=== PATIENT | female | born 1985 | race Hispanic/Latino ===

== ENCOUNTER 2018-11-06 14:06 | Emergency (ER) | payer BC, SELFPAY ==
[2018-11-06 15:14] LABS: RBC Red Blood Cell Count 4.22 M/uL (3.86-4.86)
[2018-11-06 15:15] LABS: Absolute Lymphocytes (CBC) 2.2 K/uL (0.7-4.9); Absolute Monocytes 0.4 K/uL (0.1-1.3); Absolute Neutrophil 4.1 K/uL (1.8-8.0); Basophils % 0.4 % (0-1.3); Eosinophils % 0.8 % (0-4.4); Hematocrit 35.1 % (36.0-45.0); Lymphocytes % 32.5 % (15.3-44.8); MPV 9.3 fL (7.6-11.3); Monocytes % 6.5 % (3.3-12.3)
[2018-11-06] MEDS ORDERED: ONDANSETRON 4 MG/2 ML VIAL ONE (15:16)
[2018-11-06] MEDS ORDERED: MORPHINE 4 MG/ML SYR ONE (15:29)
[2018-11-06] MEDS ORDERED: NA CHLORIDE 0.9% 1,000 ML ONE (15:29)
[2018-11-06 15:31] LABS: ALT/SGPT 34 U/L (12-78); AST/SGOT 15 U/L (15-37); Albumin 3.5 g/dL (3.4-5.0); Alkaline Phosphatase 86 U/L (45-117); BUN Blood Urea Nitrogen 12 mg/dL (7-18); Bicarbonate 26 mmol/L (21-32); Bilirubin Direct < 0.1 mg/dL (0-0.2); Bilirubin Total 0.2 mg/dL (0.2-1.0); Glucose Level 97 mg/dL (74-106); Lipase 292 U/L (73-393); Potassium 3.7 mmol/L (3.5-5.1); Protein, Total 7.4 g/dL (6.4-8.2); Sodium Level 140 mmol/L (136-145)
[2018-11-06 15:35] LABS: Urine Amorphous Sediment 2+ /HPF (NONE SEEN); Urine Bacteria 20-50 /HPF (<20); Urine Culture Reflex Order REFLEXED; Urine RBC NONE SEEN /HPF (NONE SEEN)
--- NOTE | 2018-11-06 16:34 | RAD REPORT ---
EXAM DESCRIPTION: US - Abdomen Exam Limited - 11/06/2018 4:22 pm CLINICAL HISTORY: ABD PAIN COMPARISON: No comparisons FINDINGS: The gallbladder demonstrates no gallstones. Tiny 2 mm polyp suspected. Gallbladder wall th ickening is present up to 6 mm. The common bile duct is upper limit of normal measuring 6 mm. The liver demonstrates no findings of intrahepatic biliary dilatation. IMPRESSION: No gallbladder stones are seen. Mildly thickened gallbladder wall can be result of hypoalbuminemia or underlying liver disease.
--- NOTE | 2018-11-06 16:44 | EDPHYS ---
Physician Documentation [facility] Name: Gena Gallego Age: 33 yrs Sex: Female : 1985 Arrival Date: 11/06/2018 Time: 14:11 Bed 27 Private MD: out of town, doctor ED Physician Noel Aaron HPI: 11/06 15:42 This 33 yrs old Female presents to ER via Ambulatory with complaints of Back kb Pain, Abdominal Pain. 15:42 The patient presents with abdominal pain in the epigastric area. Onset: The kb symptoms/episode began/occurred 1 week(s) ago. The symptoms radiate to back. Associated signs and symptoms: Pertinent positives: nausea. The symptoms are described as intermittent. Modifying factors: The symptoms are alleviated by nothing, the symptoms are aggravated by nothing. Severity of pain: At its worst the pain was moderate in the emergency department the pain is unchanged. The patient has not experienced similar symptoms in the past. The patient has not recently seen a physician. 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 - Social history:: Smoking status: Patient/guardian denies using tobacco. - Ebola Screening: : Patient denies travel to an Ebola-affected area in the 21 days before illness onset. ROS: 15:41 Constitutional: Negative for fever, chills, and weight loss, ENT: Negative for injury, kb pain, and discharge, Neck: Negative for injury, pain, and swelling, Cardiovascular: Negative for chest pain, palpitations, and edema, Respiratory: Negative for shortness of breath, cough, wheezing, and pleuritic chest pain, : Negative for injury, bleeding, discharge, and swelling, MS/Extremity: Negative for injury and deformity, Skin: Negative for injury, rash, and discoloration. 15:41 Abdomen/GI: Positive for abdominal pain, nausea, Negative for vomiting, diarrhea, constipation, abdominal cramps, abdominal distension, anorexia. Exam: 15:42 Constitutional: This is a well developed, well nourished patient who is awake, alert, kb and in no acute distress. Head/Face: Normocephalic, atraumatic. ENT: Nares patent. No nasal discharge, no septal abnormalities noted. Tympanic membranes are normal and external auditory canals are clear. Oropharynx with no redness, swelling, or masses, exudates, or evidence of obstruction, uvula midline. Mucous membranes moist. Neck: Trachea midline, no thyromegaly or masses palpated, and no cervical lymphadenopathy. Supple, full range of motion without nuchal rigidity, or vertebral point tenderness. No Meningismus. Chest/axilla: Normal chest wall appearance and motion. Nontender with no deformity. No lesions are appreciated. Cardiovascular: Regular rate and rhythm with a normal S1 and S2. No gallops, murmurs, or rubs. Normal PMI, no JVD. No pulse deficits. Respiratory: Lungs have equal breath sounds bilaterally, clear to auscultation and percussion. No rales, rhonchi or wheezes noted. No increased work of breathing, no retractions or nasal flaring. Skin: Warm, dry with normal turgor. Normal color with no rashes, no lesions, and no evidence of cellulitis. MS/ Extremity: Pulses equal, no cyanosis. Neurovascular intact. Full, normal range of motion. Neuro: Awake and alert, GCS 15, oriented to person, place, time, and situation. Cranial nerves II-XII grossly intact. Motor strength 5/5 in all extremities. Sensory grossly intact. Cerebellar exam normal. Normal gait. 15:42 Abdomen/GI: Inspection: abdomen appears normal, Bowel sounds: normal, in all quadrants, Palpation: soft, in all quadrants, nontender, in the right lower quadrant and left lower quadrant, moderate abdominal tenderness, in the right upper quadrant and left upper quadrant. Vital Signs: 14:32 BP 129 / 89; Pulse 63; Resp 18; Temp 98.5; Pulse Ox 100% on R/A; Height 5 ft. 0 in. aj1 (152.40 cm); Pain 8/10; 15:25 BP 143 / 89; Pulse 60; Resp 17; Pulse Ox 100% on R/A; tw2 16:17 BP 101 / 72; Pulse 53; Resp 17; Pulse Ox 100% on R/A; Pain 6/10; tw2 16:53 BP 119 / 81; Pulse 73; Resp 17; Pulse Ox 100% on R/A; Pain 6/10; tw2 17:13 BP 119 / 81; Pulse 58; Resp 17; Pulse Ox 100% on R/A; Pain 6/10; tw2 MDM: 14:34 Patient medically screened. kb 15:42 Data reviewed: vital signs, nurses notes. Data interpreted: Pulse oximetry: on room air kb is 100 %. Interpretation: normal. 16:42 Counseling: I had a detailed discussion with the patient and/or guardian regarding: the kb historical points, exam findings, and any diagnostic results supporting the discharge/admit diagnosis, lab results, radiology results, the need for outpatient follow up, a family practitioner, to return to the emergency department if symptoms worsen or persist or if there are any questions or concerns that arise at home. 11/06 14:43 Order name: Basic Metabolic Panel; Complete Time: 15:33 tw2 11/06 14:43 Order name: CBC with Diff; Complete Time: 15:33 tw11/06 14:43 Order name: Creatinine for Radiology; Complete Time: 15:33 tw11/06 14:43 Order name: Hepatic Function; Complete Time: 15:33 tw2 11/06 14:43 Order name: Lipase; Complete Time: 15:33 tw2 11/06 15:05 Order name: Urine Microscopic Only; Complete Time: 15:38 11/06 15:08 Order name: Urine Dipstick--Ancillary (enter results) 11/06 15:08 Order name: Urine --Ancillary (enter results) 11/06 15:15 Order name: US Abdomen Limited; Complete Time: 16:36 kb 11/06 15:36 Order name: Urine Culture [facility] 11/06 14:43 Order name: IV Saline Lock; Complete Time: 15:06 tw2 11/06 14:43 Order name: Labs collected and sent; Complete Time: 15:07 tw11/06 14:43 Order name: Urine Test (obtain specimen); Complete Time: 15:06 tw11/06 14:43 Order name: Urine Dipstick-Ancillary (obtain specimen); Complete Time: 15:06 tw2 Administered Medications: 15:10 Drug: Zofran 4 mg Route: IVP; Site: right antecubital; tw2 16:19 Follow up: Response: No adverse reaction; Nausea is decreased tw2 15:22 Drug: morphine 4 mg Route: IVP; Site: right antecubital; tw2 16:19 Follow up: Response: No adverse reaction; Pain is decreased tw2 15:25 Drug: NS 0.9% 1000 ml Route: IV; Rate: 1000 ml; Site: right antecubital; tw2 16:19 Follow up: Response: No adverse reaction; IV Status: Completed infusion; IV Intake: tw2 1000ml 16:44 Drug: ProTONIX 40 mg Route: IVP; Site: right antecubital; tw2 16:53 Follow up: Response: No adverse reaction tw2 16:45 Drug: Macrobid 100 mg Route: PO; tw2 17:14 Follow up: Response: No adverse reaction tw2 Disposition: 11/06/18 16:43 Discharged to Home. Impression: Upper abdominal pain, unspecified, Urinary tract infection, site not specified. - Condition is Stable. - Discharge Instructions: Urinary Tract Infection, Adult, [id number], Abdominal Pain, Adult, [id number]. - Prescriptions for Macrobid 100 mg Oral Capsule - take 1 capsule by ORAL route every 12 hours for 7 days; 14 capsule. - Medication Reconciliation Form, Thank You Letter, Antibiotic Education, Prescription Opioid Use form. - Follow up: Emergency Department; When: As needed; Reason: Worsening of condition. Follow up: Private Physician; When: 2 - 3 days; Reason: Recheck today's complaints, Continuance of care, Re-evaluation by your physician. Addendum: 11/08/2018 10:27 Co-signature as Attending Physician, Noel Aaron MD. g s Signatures: Dispatcher [employer] [facility] Tanisha Agustin, WASHER OFF-C WASHER OFF-Ckb Estrellita Chavez RN RN aj1 Vanita Alvarado RN RN ss Arabella Bliss RN RN tw2 Noel Aaron MD MD Corrections: (The following items were deleted from the chart) 11/06 16:43 16:43 11/06/2018 16:43 Discharged to Home. Impression: Upper abdominal pain, kb unspecified. Condition is Stable. Forms are Medication Reconciliation Form, Thank You Letter, Antibiotic Education, Prescription Opioid Use. Follow up: Emergency Department; When: As needed; Reason: Worsening of condition. Follow up: Private Physician; When: 2 - 3 days; Reason: Recheck today's complaints, Continuance of care, Re-evaluation by your physician. kb 17:15 16:43 11/06/2018 16:43 Discharged to Home. Impression: Upper abdominal pain, tw2 unspecified; Urinary tract infection, site not specified. Condition is Stable. Forms are Medication Reconciliation Form, Thank You Letter, Antibiotic Education, Prescription Opioid Use. Follow up: Emergency Department; When: As needed; Reason: Worsening of condition. Follow up: Private Physician; When: 2 - 3 days; Reason: Recheck today's complaints, Continuance of care, Re-evaluation by your physician. kb
--- NOTE | 2018-11-06 16:44 | ER ---
Nurse's Notes [facility] Name: Gena Gallego Age: 33 yrs Sex: Female : 1985 Arrival Date: 11/06/2018 Time: 14:11 Bed 27 Private MD: out of town, doctor Diagnosis: Upper abdominal pain, unspecified;Urinary tract infection, site not specified Presentation: 11/06 14:28 Presenting complaint: Patient states: "I've been having really bad back pain right in aj1 the middle and then the pain goes all the way to the front in my chest." Patient reports back pain, epigastric pain and chest pain that has been intermittent for the past week. Patient reports that she recently had a baby on . Transition of care: patient was not received from another setting of care. Onset of symptoms was October 30, 2018. Risk Assessment: Do you want to hurt yourself or someone else? Patient reports no desire to harm self or others. Initial Sepsis Screen: Does the patient meet any 2 criteria? No. Patient's initial sepsis screen is negative. Does the patient have a suspected source of infection? Yes: Acute abdominal pain. 14:28 Method Of Arrival: Ambulatory aj1 14:28 Acuity: DEVANTE 3 aj1 14:32 Care prior to arrival: None. aj1 Triage Assessment: 14:32 General: Appears in no apparent distress. uncomfortable, Behavior is calm, cooperative, aj1 appropriate for age. Pain: Complains of pain in back Pain radiates to epigastric area Pain currently is 8 out of 10 on a pain scale. Neuro: Level of Consciousness is awake, alert, obeys commands. Cardiovascular: Patient's skin is warm and dry. Respiratory: Airway is patent Respiratory effort is even, unlabored, Respiratory pattern is regular, symmetrical. Musculoskeletal: Range of motion: intact in all extremities. 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 - Social history:: Smoking status: Patient/guardian denies using tobacco. - Ebola Screening: : Patient denies travel to an Ebola-affected area in the 21 days before illness onset. Screenin:32 Abuse screen: Denies threats or abuse. Nutritional screening: No deficits noted. tw2 Tuberculosis screening: No symptoms or risk factors identified. Fall Risk None identified. Assessment: 14:35 General: Appears in no apparent distress. obese, well groomed, Behavior is calm, tw2 cooperative, appropriate for age. Pain: Complains of pain in abdomen and epigastric area Pain radiates to back. Neuro: Level of Consciousness is awake, alert, obeys commands, Oriented to person, place, time, situation. Cardiovascular: Heart tones S1 S2 Patient's skin is warm and dry. Respiratory: Airway is patent Respiratory effort is even, unlabored, Respiratory pattern is regular, symmetrical, Breath sounds are clear bilaterally. GI: Abdomen is round non-distended, Bowel sounds present X 4 quads. Reports upper abdominal pain, nausea. : No signs and/or symptoms were reported regarding the genitourinary system. EENT: No signs and/or symptoms were reported regarding the EENT system. Derm: No signs and/or symptoms reported regarding the dermatologic system. Musculoskeletal: Range of motion: intact in all extremities. 15:26 Reassessment: Patient appears in no apparent distress at this time. No changes from tw2 previously documented assessment. Patient and/or family updated on plan of care and expected duration. Pain level reassessed. Patient is alert, oriented x 3, equal unlabored respirations, skin warm/dry/pink. 16:17 Reassessment: Patient appears in no apparent distress at this time. No changes from tw2 previously documented assessment. Patient and/or family updated on plan of care and expected duration. Pain level reassessed. Patient is alert, oriented x 3, equal unlabored respirations, skin warm/dry/pink. US completed at bedside at this time. 16:38 Reassessment: provider at bedside at this time. tw2 16:53 Reassessment: Patient appears in no apparent distress at this time. No changes from tw2 previously documented assessment. Patient and/or family updated on plan of care and expected duration. Pain level reassessed. Patient is alert, oriented x 3, equal unlabored respirations, skin warm/dry/pink. 17:13 Reassessment: Patient appears in no apparent distress at this time. No changes from tw2 previously documented assessment. Patient and/or family updated on plan of care and expected duration. Pain level reassessed. Patient is alert, oriented x 3, equal unlabored respirations, skin warm/dry/pink. Patient states feeling better. Patient states symptoms have improved. Vital Signs: 14:32 BP 129 / 89; Pulse 63; Resp 18; Temp 98.5; Pulse Ox 100% on R/A; Height 5 ft. 0 in. aj1 (152.40 cm); Pain 8/10; 15:25 BP 143 / 89; Pulse 60; Resp 17; Pulse Ox 100% on R/A; tw2 16:17 BP 101 / 72; Pulse 53; Resp 17; Pulse Ox 100% on R/A; Pain 6/10; tw2 16:53 BP 119 / 81; Pulse 73; Resp 17; Pulse Ox 100% on R/A; Pain 6/10; tw2 17:13 BP 119 / 81; Pulse 58; Resp 17; Pulse Ox 100% on R/A; Pain 6/10; tw2 ED Course: 14:11 Patient arrived in ED. sb2 14:11 out of town, doctor is Private Physician. sb2 14:22 [facility]C [facility]. kb 14:22 Noel Aaron MD is Attending Physician. kb 14:31 Triage completed. aj1 14:35 Bed in low position. Call light in reach. Pulse ox on. NIBP on. tw2 14:42 Arabella Bliss, RN is Primary Nurse. tw2 14:55 Inserted saline lock: 22 gauge in right antecubital area, using aseptic technique. tw2 Blood collected. 15:33 Arm band placed on. tw2 16:22 US Abdomen Limited In Process Unspecified. EDMS 16:23 Ultrasound completed. Patient tolerated well. sg3 17:14 No provider procedures requiring assistance completed. IV discontinued, intact, tw2 bleeding controlled, No redness/swelling at site. Pressure dressing applied. Administered Medications: 15:10 Drug: Zofran 4 mg Route: IVP; Site: right antecubital; tw2 16:19 Follow up: Response: No adverse reaction; Nausea is decreased tw2 15:22 Drug: morphine 4 mg Route: IVP; Site: right antecubital; tw2 16:19 Follow up: Response: No adverse reaction; Pain is decreased tw2 15:25 Drug: NS 0.9% 1000 ml Route: IV; Rate: 1000 ml; Site: right antecubital; tw2 16:19 Follow up: Response: No adverse reaction; IV Status: Completed infusion; IV Intake: tw2 1000ml 16:44 Drug: ProTONIX 40 mg Route: IVP; Site: right antecubital; tw2 16:53 Follow up: Response: No adverse reaction tw2 16:45 Drug: Macrobid 100 mg Route: PO; tw2 17:14 Follow up: Response: No adverse reaction tw2 Intake: 16:19 IV: 1000ml; Total: 1000ml. tw2 Outcome: 16:43 Discharge ordered by . joann 17:14 Discharged to home ambulatory, with family. tw2 17:14 Condition: stable 17:14 Discharge instructions given to patient, family, Instructed on discharge instructions, follow up and referral plans. medication usage, Demonstrated understanding of instructions, follow-up care, medications, Prescriptions given X 1. 17:15 Patient left the ED. tw2 Signatures: Dispatcher [employer] EDTanisha Noonan, DIRECTOR AND PROFESSOR-C DIRECTOR AND PROFESSOR-CkEstrellita Lopez RN RN aj1 Arabella Bliss RN RN tw2 Seble Ramirez sg3 Renetta Mendoza sb2 Corrections: (The following items were deleted from the chart) 14:33 14:28 Presenting complaint: Patient states: "I've been having really bad back pain aj1 right in the middle and then the pain goes all the way to the front in my chest." Patient reports back pain, epigastric pain and chest pain that has been intermittent for the past week. aj1
[2018-11-06] MEDS ORDERED: NITROFURAN MACRO 100 MG CAP PO ONE (16:49)
[2018-11-06] MEDS ORDERED: PANTOPRAZOLE 40 MG INJ ONE (16:50)
[2018-11-06 17:46] LABS: Urine Blood NEGATIVE (NEG); Urine Glucose NEGATIVE (NEG); Urine Protein NEGATIVE (NEG); Urine Specific Gravity 1.015 (1.005-1.030); Urine pH 5.5 (5.0-7.0)
== END 2018-11-06 17:15 | disposition home or self-care (01) ==
LOC: ER 14:06
DX: N39.0 Urinary tract infection, site not specified (principal)
CPT/HCPCS: 36415; 76705; 80048; 80076; 81003; 81015; 81025; 83690; 85025; 87086; 87088; 96361; 96374; 96375; 99284; C9113; J2405; J7030

== ENCOUNTER 2018-11-29 22:21 | Emergency (ER) | payer BC ==
[2018-11-29 23:07] LABS: Absolute Lymphocytes (CBC) 2.7 K/uL (0.7-4.9); Absolute Monocytes 0.6 K/uL (0.1-1.3); Absolute Neutrophil 5.5 K/uL (1.8-8.0); Basophils % 0.4 % (0-1.3); Eosinophils % 0.7 % (0-4.4); Hematocrit 36.8 % (36.0-45.0); Lymphocytes % 30.4 % (15.3-44.8); MPV 9.3 fL (7.6-11.3); Monocytes % 6.2 % (3.3-12.3); RBC Red Blood Cell Count 4.39 M/uL (3.86-4.86)
[2018-11-29 23:20] LABS: Albumin 3.8 g/dL (3.4-5.0); Bilirubin Direct 0.2 mg/dL (0-0.2); Bilirubin Total 0.4 mg/dL (0.2-1.0); Potassium 3.7 mmol/L (3.5-5.1); Protein, Total 8.1 g/dL (6.4-8.2)
[2018-11-29 23:37] LABS: Urine Blood NEGATIVE (NEG); Urine Glucose NEGATIVE (NEG); Urine Protein NEGATIVE (NEG)
[2018-11-29] MEDS ORDERED: KETOROLAC 30 MG/ML INJ ONE (23:41)
[2018-11-29] MEDS ORDERED: ONDANSETRON 4 MG/2 ML VIAL ONE (23:55)
[2018-11-29] MEDS ORDERED: MORPHINE 4 MG/ML SYR ONE (23:55)
--- NOTE | 2018-11-30 00:23 | ER ---
Nurse's Notes [facility] Name: Gena Gallego Age: 33 yrs Sex: Female : 1985 Arrival Date: 11/29/2018 Time: 22:29 Bed 16 Private MD: Diagnosis: Upper abdominal pain, unspecified Presentation: 11/29 22:16 Presenting complaint: EMS states: Pt is complaining of abdominal pain that started 45 jb4 minutes ago. 22:16 Transition of care: patient was not received from another setting of care. Onset of jb4 symptoms was November 29, 2018. Risk Assessment: Do you want to hurt yourself or someone else? Patient reports no desire to harm self or others. Initial Sepsis Screen: Does the patient meet any 2 criteria? No. Patient's initial sepsis screen is negative. Does the patient have a suspected source of infection? No. Patient's initial sepsis screen is negative. Care prior to arrival: None. 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 - Social history:: Smoking status: Patient/guardian denies using tobacco, but has a distant history of tobacco abuse, Patient/guardian denies using alcohol. - Ebola Screening: : No symptoms or risks identified at this time. Screenin:16 Abuse screen: Denies threats or abuse. Nutritional screening: No deficits noted. jb4 Tuberculosis screening: No symptoms or risk factors identified. Fall Risk None identified. Assessment: 22:16 General: Appears in no apparent distress. uncomfortable, Behavior is calm, cooperative, jb4 appropriate for age. Pain: Complains of pain in abdomen Pain radiates to back Pain currently is 8 out of 10 on a pain scale. Quality of pain is described as crampy, Pain began 30 min ago. Neuro: Level of Consciousness is awake, alert, obeys commands, Oriented to person, place, time, situation. Cardiovascular: Patient's skin is warm and dry. Respiratory: Airway is patent Respiratory effort is even, unlabored, Respiratory pattern is regular, symmetrical. GI: Abdomen is round non-distended, Bowel sounds present X 4 quads. : No signs and/or symptoms were reported regarding the genitourinary system. EENT: No signs and/or symptoms were reported regarding the EENT system. Derm: Skin is intact, Skin is pink, warm \T\ dry. Musculoskeletal: Circulation, motion, and sensation intact. 23:00 Reassessment: Patient appears in no apparent distress at this time. Patient and/or jb4 family updated on plan of care and expected duration. Pain level reassessed. Patient is alert, oriented x 3, equal unlabored respirations, skin warm/dry/pink. 11/30 00:00 Reassessment: Patient appears in no apparent distress at this time. Patient and/or jb4 family updated on plan of care and expected duration. Pain level reassessed. Patient is alert, oriented x 3, equal unlabored respirations, skin warm/dry/pink. Vital Signs: 11/29 22:16 BP 115 / 67; Pulse 74; Resp 16; Temp 99.1(O); Pulse Ox 100% on R/A; Weight 81.65 kg jb4 (R); Height 5 ft. 1 in. (154.94 cm) (R); Pain 8/10; 23:00 BP 123 / 71; Pulse 57; Resp 16; Pulse Ox 98% on R/A; jb4 11/30 00:15 BP 102 / 60; Pulse 76; Resp 16; Pulse Ox 99% on R/A; jb4 11/29 22:16 Body Mass Index 34.01 (81.65 kg, 154.94 cm) 4 ED Course: 11/29 22:16 Arm band placed on left wrist. jb4 22:16 Patient has correct armband on for positive identification. Bed in low position. Call [facility] light in reach. Side rails up X 1. Pulse ox on. NIBP on. 22:29 Patient arrived in ED. jb4 22:30 Triage completed. jb4 22:38 Tanish[facility] Agustin [facility]-C [facility]. kb 22:38 Rc Kolb MD is Attending Physician. kb 22:41 Ariel Benito RN is Primary Nurse. jb4 22:56 Inserted saline lock: 22 gauge in right antecubital area, using aseptic technique. mb4 Blood collected. 22:58 US Abdomen Limited In Process Unspecified. EDMS 02 00:40 No provider procedures requiring assistance completed. IV discontinued, intact, jb4 bleeding controlled. Administered Medications: 11/29 23:35 Drug: TORadol 30 mg Route: IVP; Site: right antecubital; jb4 23:40 Follow up: Response: No adverse reaction; Pain is unchanged, physician notified jb4 23:48 Drug: Zofran 4 mg Route: IVP; Site: right antecubital; jb4 11/30 00:40 Follow up: Response: No adverse reaction jb4 11/29 23:50 Drug: morphine 4 mg Route: IVP; Site: right antecubital; jb4 11/30 00:41 Follow up: Response: No adverse reaction; Pain is decreased jb4 Outcome: 00:22 Discharge ordered by MD. kb 00:40 Discharged to home ambulatory, with family. jb4 00:40 Condition: stable 00:40 Discharge instructions given to patient, Instructed on discharge instructions, follow up and referral plans. medication usage, Demonstrated understanding of instructions, follow-up care, medications, Prescriptions given X 2. 00:41 Patient left the ED. jb4 Signatures: Dispatcher [employer] EDMT Tanisha Agustin, CARNIVAL WORKER-C CARNIVAL WORKER-Ariel Moreno, RN RN jb4 Lacie Valdes4 Corrections: (The following items were deleted from the chart) 00:41 00:40 Response: No adverse reaction jb4 jb4
--- NOTE | 2018-11-30 00:23 | EDPHYS ---
Physician Documentation [facility] Name: Gena Gallego Age: 33 yrs Sex: Female : 1985 Arrival Date: 11/29/2018 Time: 22:29 Bed 16 Private MD: ED Physician Rc Kolb HPI: 11/29 23:12 This 33 yrs old Female presents to ER via EMS with complaints of abdominal kb pain. 23:12 The patient presents with abdominal pain in the epigastric area. Onset: The kb symptoms/episode began/occurred 45 minute(s) ago. The symptoms do not radiate. Associated signs and symptoms: none. The symptoms are described as constant. Modifying factors: The symptoms are alleviated by nothing, the symptoms are aggravated by nothing. Severity of pain: At its worst the pain was moderate in the emergency department the pain is unchanged. The patient has experienced a previous episode, approximately 1 months ago. The patient has not recently seen a physician. 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 - Social history:: Smoking status: Patient/guardian denies using tobacco, but has a distant history of tobacco abuse, Patient/guardian denies using alcohol. - Ebola Screening: : No symptoms or risks identified at this time. ROS: 23:28 Constitutional: Negative for fever, chills, and weight loss, Cardiovascular: Negative kb for chest pain, palpitations, and edema, Respiratory: Negative for shortness of breath, cough, wheezing, and pleuritic chest pain, Back: Negative for injury and pain, : Negative for injury, bleeding, discharge, and swelling, MS/Extremity: Negative for injury and deformity, Skin: Negative for injury, rash, and discoloration, Neuro: Negative for headache, weakness, numbness, tingling, and seizure. 23:28 Abdomen/GI: Positive for abdominal pain, Negative for nausea, vomiting, and diarrhea, constipation, abdominal cramps, abdominal distension, anorexia. Exam: 23:30 Constitutional: This is a well developed, well nourished patient who is awake, alert, kb and in no acute distress. Head/Face: Normocephalic, atraumatic. Chest/axilla: Normal chest wall appearance and motion. Nontender with no deformity. No lesions are appreciated. Cardiovascular: Regular rate and rhythm with a normal S1 and S2. No gallops, murmurs, or rubs. Normal PMI, no JVD. No pulse deficits. Respiratory: Lungs have equal breath sounds bilaterally, clear to auscultation and percussion. No rales, rhonchi or wheezes noted. No increased work of breathing, no retractions or nasal flaring. Back: No spinal tenderness. No costovertebral tenderness. Full range of motion. Skin: Warm, dry with normal turgor. Normal color with no rashes, no lesions, and no evidence of cellulitis. MS/ Extremity: Pulses equal, no cyanosis. Neurovascular intact. Full, normal range of motion. Neuro: Awake and alert, GCS 15, oriented to person, place, time, and situation. Cranial nerves II-XII grossly intact. Motor strength 5/5 in all extremities. Sensory grossly intact. Cerebellar exam normal. Normal gait. 23:30 Abdomen/GI: Inspection: abdomen appears normal, Bowel sounds: normal, in all quadrants, Palpation: soft, in all quadrants, moderate abdominal tenderness, in the epigastric area and right upper quadrant. Vital Signs: 22:16 BP 115 / 67; Pulse 74; Resp 16; Temp 99.1(O); Pulse Ox 100% on R/A; Weight 81.65 kg jb4 (R); Height 5 ft. 1 in. (154.94 cm) (R); Pain 8/10; 23:00 BP 123 / 71; Pulse 57; Resp 16; Pulse Ox 98% on R/A; jb4 11/30 00:15 BP 102 / 60; Pulse 76; Resp 16; Pulse Ox 99% on R/A; jb4 11/29 22:16 Body Mass Index 34.01 (81.65 kg, 154.94 cm) jb4 MDM: 11/29 22:38 Patient medically screened. kb 23:29 Data reviewed: vital signs, nurses notes. Data interpreted: Pulse oximetry: on room air kb is 100 %. Interpretation: normal. Counseling: I had a detailed discussion with the patient and/or guardian regarding: the historical points, exam findings, and any diagnostic results supporting the discharge/admit diagnosis, lab results, radiology results, the need for outpatient follow up, a family practitioner, a forestry support specialist, to return to the emergency department if symptoms worsen or persist or if there are any questions or concerns that arise at home. 11/30 00:22 ED course: Pain resolved after morphine. kb 11/29 22:39 Order name: Basic Metabolic Panel; Complete Time: 23:21 kb 11/29 22:39 Order name: CBC with Diff; Complete Time: 23:10 kb 11/29 22:39 Order name: Hepatic Function; Complete Time: 23:21 kb 11/29 22:39 Order name: Lipase; Complete Time: 23:21 kb 11/29 23:32 Order name: Urine Dipstick--Ancillary (enter results); Complete Time: 23:38 ag4 11/29 23:32 Order name: Urine --Ancillary (enter results); Complete Time: 23:38 ag4 11/29 22:39 Order name: IV Saline Lock; Complete Time: 22:41 kb 11/29 22:39 Order name: Labs collected and sent; Complete Time: 22:42 kb 11/29 22:39 Order name: US Abdomen Limited kb 11/29 22:39 Order name: Urine Dipstick-Ancillary (obtain specimen); Complete Time: 23:27 kb Administered Medications: 11/29 23:35 Drug: TORadol 30 mg Route: IVP; Site: right antecubital; [facility] 23:40 Follow up: Response: No adverse reaction; Pain is unchanged, physician notified jb4 23:48 Drug: Zofran 4 mg Route: IVP; Site: right antecubital; jb4 11/30 00:40 Follow up: Response: No adverse reaction 4 11/29 23:50 Drug: morphine 4 mg Route: IVP; Site: right antecubital; 4 11/30 00:41 Follow up: Response: No adverse reaction; Pain is decreased jb4 Disposition: 12:26 Co-signature as Attending Physician, Rc Kolb MD I agree with the assessment and gabriel plan of care. Disposition: 11/30/18 00:22 Discharged to Home. Impression: Upper abdominal pain, unspecified. - Condition is Stable. - Discharge Instructions: Abdominal Pain, Adult, [id number]. - Prescriptions for Bentyl 20 mg Oral Tablet - take 1 tablet by ORAL route every 6 hours As needed; 20 tablet. Tylenol- Codeine #3 300-30 mg Oral Tablet - take 2 tablets by ORAL route every 6 hours As needed; 16 tablet. - Medication Reconciliation Form, Thank You Letter, Antibiotic Education, Prescription Opioid Use form. - Follow up: Emergency Department; When: As needed; Reason: Worsening of condition. Follow up: Private Physician; When: 2 - 3 days; Reason: Recheck today's complaints, Continuance of care, Re-evaluation by your physician. Signatures: Dispatcher [employer] EDMS Tanisha Agustin, PATTERN RULER-C PATTERN RULER-Alokb Rc Kolb MD MD cha Bryson, James, RN RN jb4 Corrections: (The following items were deleted from the chart) 00:41 00:22 11/30/2018 00:22 Discharged to Home. Impression: Upper abdominal pain, jb4 unspecified. Condition is Stable. Forms are Medication Reconciliation Form, Thank You Letter, Antibiotic Education, Prescription Opioid Use. Follow up: Emergency Department; When: As needed; Reason: Worsening of condition. Follow up: Private Physician; When: 2 - 3 days; Reason: Recheck today's complaints, Continuance of care, Re-evaluation by your physician. kb
--- NOTE | 2018-11-30 08:20 | RAD REPORT ---
EXAM DESCRIPTION: US - Abdomen Exam Limited - 11/29/2018 11:06 pm CLINICAL HISTORY: ABD PAIN COMPARISON: Abdomen Exam Limited dated 11/06/2018 FINDINGS: The gallbladder demonstrates no gallstones. No pericholecystic fluid or gallbladder wall t hickening. The common bile duct is normal measuring 3 mm. The liver demonstrates no findings of intrahepatic biliary dilatation. IMPRESSION: Unremarkable examination.
== END 2018-11-30 00:41 | disposition home or self-care (01) ==
LOC: ER 22:21
DX: R10.10 Upper abdominal pain, unspecified (principal)
CPT/HCPCS: 36415; 76705; 80048; 80076; 81003; 81025; 83690; 85025; 96374; 96375; 99284; J2405